=== PATIENT | male | born 1995 | race Caucasian/White ===

== ENCOUNTER 2018-05-16 05:15 | Day surgery (SDC) | payer OTHER ==
[~2018-05-16 05:15] MED LIST: CEFAZOLIN 2 GM/D5W RTU 2 GM/50 ML RTUPB IV PRN; LACTATED RINGERS 1000 ML IV PRN; LIDOCAINE 0.5% INJ-PF (5 MG/ML) 50 ML SDV SUBCUT PRN
[2018-05-16] MEDS ORDERED: CEFAZOLIN 2 GM/D5W RTU 2 GM/50 ML RTUPB IV ONE (05:24)
[2018-05-16 05:37] LABS: APPEARANCE,URINE CLEAR; BILIRUBIN,URINE NEGATIVE (NEGATIVE); COLOR,URINE YELLOW; GLUCOSE, URINE NEGATIVE (NEGATIVE); KETONES,URINE NEGATIVE (NEGATIVE); LEUKOCYTE ESTERASE,URINE NEGATIVE (NEGATIVE); NITRITE,URINE NEGATIVE (NEGATIVE); PROTEIN,URINE NEGATIVE (NEGATIVE); URINE SPECIFIC GRAVITY 1.025; UROBILINOGEN,URINE NEGATIVE mg/dL (<2.0)
[2018-05-16] MEDS ORDERED: MIDAZOLAM 2 MG/2 ML INJ ONE (06:58)
[2018-05-16] MEDS ORDERED: LIDOCAINE 2% INJ-PF (20 MG/ML) 10 ML AMPUL ONE (06:58)
[2018-05-16] MEDS ORDERED: FENTANYL CITRATE INJ/PF 100 MCG/2 ML AMPUL ONE (06:58)
[2018-05-16] MEDS ORDERED: ACETAMINOPHEN 1,000 MG/100 ML RTUPB IV ONE (06:58)
[2018-05-16] MEDS ORDERED: PROPOFOL INJ 200 MG/20 ML VIAL IV ONE ×2 (06:58→08:15)
[2018-05-16] MEDS ORDERED: LIDOCAINE 1% INJ-PF (10 MG/ML) 30 ML SDV ONE (07:28)
[2018-05-16] MEDS ORDERED: MORPHINE SULFATE 10 MG/ML INJ IV PRN (07:42)
[2018-05-16] MEDS ORDERED: DIPHENHYDRAMINE HCL 50 MG/ML VIAL IV PRN (07:42)
[2018-05-16] MEDS ORDERED: FENTANYL CITRATE INJ/PF 100 MCG/2 ML AMPUL IV PRN ×3 (07:42)
[2018-05-16] MEDS ORDERED: PROMETHAZINE HCL INJ 25 MG/1 ML VIAL IV PRN (07:42)
[2018-05-16] MEDS ORDERED: MEPERIDINE HCL/PF INJ 25 MG/1 ML DISP.SYRIN IV PRN (07:42)
[2018-05-16] MEDS ORDERED: ONDANSETRON HCL INJ/PF 4 MG/2 ML SDV IV PRN (08:02)
[2018-05-16] MEDS ORDERED: HYDROCODONE/ACETAMINOPHEN 5-325 MG TABLET PO PRN (08:02)
--- NOTE | 2018-05-16 08:03 | Operative Report ---
Operative Report PREOPERATIVE DIAGNOSIS: Left small finger distal phalanx fracture intra- articular at DIP joint POSTOPERATIVE DIAGNOSIS: Same OPERATION: Closed reduction intra-articular distal phalanx fracture with transarticular pinning of the DIP joint SURGEON: [place] MANTILLA ANESTHESIA: LMAC COMPLICATIONS: None ESTIMATED BLOOD LOSS: Minimal PROCEDURE: Indication for above procedure: 22-year-old male who sustained injury to his left small finger. At the time of injury was unable to extend the digit. Injury occurred on 04/24/18. He was seen in my office at which point we discussed treatment options including conservative management with a stack splint versus operative intervention. He initially elected to proceed with stack splinting but states that due to his occupation and admittedly his compliance he elected to proceed with operative intervention. Details of operative procedure and postoperative expectations have been explained. Risks including neurovascular risk, infection, postoperative pain, recurrence of deformity. He verbalized understanding and consented for transarticular pinning left small finger DIP joint. Procedure In Detail: Patient was seen and evaluated in the preoperative holding area. The left small finger upper extremity was initialized and marked. Patient received 2g of Ancef IV for bacterial prophylaxis. Patient was taken back to the operative room where transferred to the operative table. Once they were adequately anesthetized a surgical team debriefing was performed ensuring all instrumentation was available, the surgical procedure was discussed with possible concerns reviewed. A digital block was performed utilizing 10 mL of 1% lidocaine without epinephrine. The upper extremity was prepped with chlor hexidine and alcohol and draped in a sterile fashion. A timeout was done identifying correct patient, procedure and extremity everyone in attendance agree with this and verbalized no concerns. Digital tourniquet was placed. DIP joint was flexed and a locking pin pace just proximal to the intra-articular distal phalanx fragment. The fragment measured approximately 50% of the articular surface. The DIP joint was then passively extended to a neutral position. A second 0.045 K wire was placed transarticular across the DIP joint. At completion the locking pin was removed C-arm fluoroscopy was obtained demonstrating reduction of the DIP joint with acceptable alignment of the articular surface. No evidence of DIP joint subluxation. Pin was then cut below the skin. Digital tourniquet was removed patient had good peripheral effusion and a soft dressing Sponge counts, instrument counts, needle counts counts were correct. Patient was then awoken from anesthesia. Transferred from the operating room table to the operating room stretcher. There was no intraoperative complications patient tolerated procedure well stable to PACU. Postoperative plan: Patient will follow-up as scheduled for wound check. Patient was instructed to begin PIP but no DIP joint range of motion and to keep the pin clean and dry. Will obtain x-rays at follow-up.
--- NOTE | 2018-05-16 08:03 | Discharge Summary ---
Discharge Summary (SDC) - Discharge Final Diagnosis: Left small finger distal phalanx fracture Date of Surgery: 05/16/18 Discharge Date: 05/16/18 Condition: Good Treatment or Instructions: Schedule Follow Up w/ Dr. Eagle Walls @ [facility] to be seen in 10-14 days or as scheduled [place]: [place]: [place]: May remove dressing on postop day #3, keep incision covered and dry. Ice and elevate Patient may begin range of motion of the PIP joint but no range of motion of the DIP joint. Keep pin covered, clean and dry Stool softener of choice when on pain medication. USE OF [id number] IBUPROFEN: Ibuprofen (Advil, Nuprin, Medipren, Motrin IB) is a medication for fever and pain control. In addition, it has anti- inflammatory effects which may be beneficial, especially in the treatment of injuries. It's best to take ibuprofen with food. Persons with ulcer disease or allergy to aspirin should notify their physician of this before taking ibuprofen. Ibuprofen can be given every four to six hours, for a total of four doses daily. Age Pain or fever dose Antiinflammatory dose 6-8 yr 200 mg (1 tab) 200 mg (1 tab) 9-11 yr 200 mg (1 tab) 200-400 mg (1-2 tab) 11-14 yr 200-400 mg (1-2 tab) 400 mg (2 tab) 15-adult 400 mg (2 tab) 600 mg (3 tab) ORAL NARCOTIC MEDICATION: You have been given a prescription for pain control. This medication is a narcotic. It's best taken with food, as nausea can result if taken on an empty stomach. Don't operate machinery or drive within six hours of taking this medication. Do not combine this medicine with alcohol, or with any medication which can cause sedation (such as cold tablets or sleeping pills) unless you get permission from the physician. Narcotics tend to cause constipation. If possible, drink plenty of fluids and eat a diet high in fiber and fruits. Please be aware that prescription narcotics also have the potential for abuse. People become addicted to these medications because of the general sense of wellbeing that they induce. This feeling along with a significant reduction in tension, anxiety, and aggression provides a stimulating seductive quality to these drugs. Once your pain is under control, we encourage you to discard your unused narcotics. Prescriptions: Hydrocodone/Acetaminophen [[place] 5-325 mg Tablet] 1 tab PO Q6 PRN #15 tablet PRN Reason: Referrals: ROSA BAKER MD [Primary Care Provider] - Discharge Diet: As Tolerated Respiratory Treatments at Home: Deep Breathing/Coughing Discharge Activity: No Lifting Over 10 Pounds, No Lifting/Push/Pulling Report the Following to Your Physician Immediately: Fever over 101 Degrees, Unusual Bleeding, Redness, Swelling, Warmth
[2018-05-16] MEDS ORDERED: KETOROLAC TROMETHAMINE 60 MG/2 ML SDV ONE (08:14)
--- NOTE | 2018-05-16 08:48 | RADIOLOGY REPORT (SQ) ---
EXAM DESCRIPTION: FINGER LEFT; NO CHG FLUORO COMPLETED DATE/TIME: 05/16/2018 8:28 am REASON FOR STUDY: LEFT 5TH DIGIT /PINKY FINGER PINNING ASST W/ FLUORO IN OR S62.630B DISP FX OF DIS LINDA PHALANX OF LEFT LITTLE FINGER, IN COMPARISON: None. FLUOROSCOPY TIME: 16 seconds Spot images saved to PACS. TECHNIQUE: Intra-operative images acquired during surgical procedure to evaluate progress. NUMBER OF IMAGES: 4 LIMITATIONS: None. FINDINGS: Fluoroscopy was provided for intraoperative procedure. Please refer to the operative repo rt for further discussion. IMPRESSION: IMAGE(S) OBTAINED DURING PROCEDURE. COMMENT: Quality ID [id number]: Final reports for procedures using fluoroscopy that document radiation exp osure indices, or exposure time and number of fluorographic images (if radiation exposure indices are not available) Please consult full operative report of the attending physician for description of the procedure. TECHNICAL DOCUMENTATION: JOB ID: [id number] [employer]- All Rights Reserved Reading location - IP/workstation name: [email or web address]
--- NOTE | 2018-05-16 08:49 | RADIOLOGY REPORT (SQ) ---
EXAM DESCRIPTION: FINGER LEFT; NO CHG FLUORO COMPLETED DATE/TIME: 05/16/2018 8:28 am REASON FOR STUDY: LEFT 5TH DIGIT /PINKY FINGER PINNING ASST W/ FLUORO IN OR S62.631X DISP FX OF DIS LINDA PHALANX OF LEFT LITTLE FINGER, IN COMPARISON: None. FLUOROSCOPY TIME: 16 seconds Spot images saved to PACS. TECHNIQUE: Intra-operative images acquired during surgical procedure to evaluate progress. NUMBER OF IMAGES: 4 LIMITATIONS: None. FINDINGS: Fluoroscopy was provided for intraoperative procedure. Please refer to the operative repo rt for further discussion. IMPRESSION: IMAGE(S) OBTAINED DURING PROCEDURE. COMMENT: Quality ID [id number]: Final reports for procedures using fluoroscopy that document radiation exp osure indices, or exposure time and number of fluorographic images (if radiation exposure indices are not available) Please consult full operative report of the attending physician for description of the procedure. TECHNICAL DOCUMENTATION: JOB ID: [id number] [employer]- All Rights Reserved Reading location - IP/workstation name: [email or web address]
[2018-05-16 09:53] VITALS: BP 133/61
== END 2018-05-16 09:54 | disposition home or self-care (01) ==
LOC: OROUT 05:15
PROVIDERS: ATTEND Orthopaedic Surgery
DX: S62.637A Displaced fracture of distal phalanx of left little finger, initial encounter for closed fracture (principal); X58.XXXA Exposure to other specified factors, initial encounter; Y93.68 Activity, volleyball (beach) (court); M79.645 Pain in left finger(s); Z87.891 Personal history of nicotine dependence; Z01.818 Encounter for other preprocedural examination
CPT/HCPCS: 81001; 73140; 26776; C1713; J2250; J1885; J3010; J3490 ×2; J2704; J0690; J0131; 01820